=== PATIENT | female | born 1970 | race Caucasian/White ===

== ENCOUNTER 2018-08-26 04:51 | Emergency (ER) | payer OTHER ==
[2018-08-26 04:59] VITALS: TEMP 97.9; O2SAT 100
[2018-08-26] MEDS ORDERED: Sodium Chloride 0.9% 1,000 ML IV STA (05:10)
[2018-08-26] MEDS ORDERED: Sodium Chloride 0.9% 1,000 ML ONE (05:20)
--- NOTE | 2018-08-26 05:22 | C.PDOC ---
History Of Present Illness 48 year old female ate some lo mein with rice for dinner which she order from a restaurant and awoke at 0400 with abdominal cramping. Patient reports having one episode of vomiting and had 10 minutes of watery diarrhea, every time she attempted to get up she got the urge to go again, no blood or mucous in the diarrhea. She is currently complaining of abdominal pain but is afebrile in the ER. Denies recent travel, URI symptoms, cough, PMHx, or drug allergies. Patient reports no one else at home as similar symptoms. LMP was 3 weeks ago. Chief Complaint (Nursing): Abdominal Pain History Per: Patient History/Exam Limitations: no limitations Onset/Duration Of Symptoms: Hrs Current Symptoms Are (Timing): Still Present Context: Food Quality Of Discomfort: Cramping Associated Symptoms: Vomiting, Diarrhea Exacerbating Factors: None Alleviating Factors: None Recent travel outside of the [place]: No Abnormal Vaginal Bleeding: No Past Medical History Reviewed: Historical Data, Nursing Documentation, Vital Signs Vital Signs: Last Vital Signs Temp 97.9 F 08/26/18 04:59 Pulse 69 08/26/18 04:59 Resp BP 90/66 L 08/26/18 04:59 Pulse Ox 100 08/26/18 04:59 Family History: States: No Known Family Hx - Social History Hx Alcohol Use: No Hx Substance Use: No - Immunization History Hx Tetanus Toxoid Vaccination: No Hx Influenza Vaccination: No Hx Pneumococcal Vaccination: No Review Of Systems Constitutional: Negative for: Fever, Chills Eyes: Negative for: Pain, Redness ENT: Negative for: Mouth Swelling Cardiovascular: Negative for: Chest Pain Respiratory: Negative for: Cough Gastrointestinal: Positive for: Vomiting, Abdominal Pain, Diarrhea Genitourinary: Negative for: Dysuria, Hematuria Musculoskeletal: Negative for: Back Pain Skin: Negative for: Rash Neurological: Negative for: Weakness, Numbness, Dizziness Physical Exam - Physical Exam Appears: Non-toxic Skin: Normal Color, Warm Head: Atraumatic, Normacephalic Eye(s): bilateral: Normal Inspection Nose: Normal Oral Mucosa: Dry Lips: Other (Dry) Throat: Normal (No swelling or injection), No Exudate Neck: Normal, Supple Chest: Symmetrical, No Tenderness Respiratory: No Accessory Muscle Use, Other (Normal inspiratory effort) Gastrointestinal/Abdominal: Soft, No Tenderness, No Distention, No Guarding, No Rebound Extremity: Normal ROM (x4) Neurological/Psych: Oriented x3, Normal Speech, Normal Cranial Nerves (Grossly intact) ED Course And Treatment - Laboratory Results Result Diagrams: 08/26/18 05:32 08/26/18 05:32 O2 Sat by Pulse Oximetry: 100 Medical Decision Making Medical Decision Making: Fluids given. On reevaluation, patient is tolerating PO, patient remains stable, will discharge home, instructed to follow up with primary. WBC elevation noted, most likely associated with acute gastroenteritis Disposition Counseled Patient/Family Regarding: Studies Performed, Diagnosis, Need For Followup, Rx Given - Disposition Disposition: HOME/ ROUTINE Disposition Time: 06:08 Condition: STABLE Prescriptions: Ondansetron ODT [Zofran ODT] 4 mg PO TID PRN #15 odt PRN Reason: Nausea/Vomiting Phenobarb/Hyoscy/Atropine/Scop [ Tablet] 1 tab PO TID #15 tablet Instructions: Food Poisoning (DC) Forms: [facility] (Belgian), General Discharge Instructions - Clinical Impression Clinical Impression: Food poisoning - PA / REHABILITATION PSYCHOLOGIST / Resident Statement MD/DO has reviewed & agrees with the documentation as recorded. - Scribe Statement The provider has reviewed the documentation as recorded by the Scribe Ed Lu All medical record entries made by the Scribe were at my direction and personally dictated by me. I have reviewed the chart and agree that the record accurately reflects my personal performance of the history, physical exam, medical decision making, and the department course for this patient. I have also personally directed, reviewed, and agree with the discharge instructions and disposition.
[2018-08-26 05:34] LABS: BASO % 0.1 % (0.0-2.0); EOS # 0.1 K/uL (0.0-0.7); EOS % 0.5 % (0.0-4.0); HEMOGLOBIN 12.5 g/dL (11.0-16.0); LYMPH % 11.9 % (20.0-40.0); MEAN CELL VOLUME 92.7 fL (81.0-99.0); MEAN CORPUSCULAR HEMOGLOBIN 30.3 pg (27.0-31.0); MEAN CORPUSCULAR HGB CONC 32.7 g/dL (33.0-37.0); MONO % 5.9 % (0.0-10.0); NEUT # 13.7 K/uL (1.8-7.0); NEUT % 81.6 % (50.0-75.0); RBC 4.13 Mil/uL (3.80-5.20); RED CELL DISTRIBUTION WIDTH 13.5 % (11.5-14.5); WHITE BLOOD COUNT 16.8 K/uL (4.8-10.8)
[2018-08-26] MEDS ORDERED: Belladonna-Phenobarbital PO STA (05:35)
[2018-08-26] MEDS ORDERED: Belladonna-Phenobarbital ONE (05:41)
[2018-08-26 05:48] LABS: BLOOD UREA NITROGEN 10 mg/dL (7-17); CALCIUM 8.5 mg/dl (8.6-10.4); GFR NON-AFRICAN AMERICAN > 60
[2018-08-26 06:33] VITALS: BP 97/60; PULSE 78; RESP 16
== END 2018-08-26 06:33 | disposition home or self-care (01) ==
LOC: C.ER 04:51
DX: T62.91XA Toxic effect of unspecified noxious substance eaten as food, accidental (unintentional), initial encounter (principal); Y92.9 Unspecified place or not applicable
CPT/HCPCS: 80048; 85025; 87804; 96361; 96374; 99285; J2405; J7040